=== PATIENT | male | born 1965 | race African-American/Black ===

== ENCOUNTER 2022-08-20 15:29 | Observation (INO) | payer OTHER ==
[2022-08-20] MEDS ORDERED: SODIUM CHLORIDE 1,000 ML IV SCH (16:30)
[2022-08-20] MEDS ORDERED: SODIUM CHLORIDE 0.9% 500 ML INFUS.BAG IV ONE (16:42)
[2022-08-20 17:02] LABS: BASO % 0.6 % (0-2.0); EOS % 1.4 % (0-4.5); HEMATOCRIT 34.1 % (35.4-49); HEMOGLOBIN 11.5 GM/dL (11.7-16.9); LYMPH % 15.2 % (8-40); MCH 28.2 pg (25.7-33.7); MCHC 33.6 g/dl (32.0-35.9); MEAN CELL VOLUME 83.9 fl (80-96); MEAN PLT VOLUME 9.5 fl (7.5-11.1); MONO % 8.4 % (3.8-10.2); NEUT % 74.4 % (42.8-82.8); PLATELET COUNT 305 10^3/uL (134-434); RBC 4.07 M/mm3 (4.00-5.60); RDW 15.1 % (11.9-15.9)
[2022-08-20] MEDS ORDERED: MECLIZINE HCL 25 MG TABLET (FP) PO ONE (17:14)
[2022-08-20] MEDS ORDERED: MECLIZINE HCL 25 MG TABLET (FP) ONE (17:23)
[2022-08-20 17:27] LABS: CALCIUM 9.3 mg/dL (8.5-10.1); INR 1.1 (0.83-1.09); PROTHROMBIN TIME (PATIENT) 12.7 SEC (9.7-13.0)
[2022-08-20 17:29] LABS: BLOOD UREA NITROGEN 12.5 mg/dL (7-18)
[2022-08-20 17:30] LABS: ACTIVATED PTT 31.6 SECONDS (25.2-36.5)
[2022-08-20 17:31] LABS: CREATININE 0.9 mg/dL (0.55-1.3)
[2022-08-20 17:33] LABS: TOT PROT 7.7 g/dl (6.4-8.2)
[2022-08-20 20:06] LABS: PH,URINE 5.5 (5.0-8.0); URINE APPEARANCE CLEAR; URINE BILIRUBIN NEGATIVE (NEGATIVE); URINE COLOR YELLOW; URINE GLUCOSE (UA) TRACE (NEGATIVE); URINE KETONE TRACE (NEGATIVE); URINE LEUK ESTERASE NEGATIVE (NEGATIVE); URINE NITRITE NEGATIVE (NEGATIVE); URINE PROTEIN NEGATIVE (NEGATIVE)
[2022-08-20] MEDS ORDERED: CEFTRIAXONE 1 GM in DEXTROSE 5%-WATER - 50 ML IVPB ONE (22:05)
[2022-08-20] MEDS ORDERED: AZITHROMYCIN IVPB 500 MG/250 ML BAG IVPB ONE (22:06)
[2022-08-20] MEDS: DEXTROSE 5%-0.45% SALINE 1,000 ML IV SCH (22:48)
[2022-08-20] MEDS: ATORVASTATIN CA 40 MG TABLET (FP) PO SCH (23:06)
[2022-08-21 00:25] VITALS: BMI 38.4
[2022-08-21] MEDS ORDERED: ACETAMINOPHEN 325 MG TABLET (FP) PO PRN (03:07)
[2022-08-21 08:37] LABS: BASO % 0.6 % (0-2.0); EOS % 2.4 % (0-4.5); HEMATOCRIT 29.5 % (35.4-49); HEMOGLOBIN 9.9 GM/dL (11.7-16.9); LYMPH % 21.4 % (8-40); MCH 28.5 pg (25.7-33.7); MCHC 33.5 g/dl (32.0-35.9); MEAN CELL VOLUME 85.3 fl (80-96); MEAN PLT VOLUME 9.7 fl (7.5-11.1); MONO % 9.8 % (3.8-10.2); NEUT % 65.8 % (42.8-82.8); PLATELET COUNT 251 10^3/uL (134-434); RBC 3.46 M/mm3 (4.00-5.60); WHITE BLOOD COUNT 8.2 K/mm3 (4.0-10.0)
[2022-08-21 09:41] LABS: POTASSIUM 4.2 mmol/L (3.5-5.1)
[2022-08-21 09:56] LABS: CALCIUM 8.7 mg/dL (8.5-10.1)
[2022-08-21 09:57] LABS: BLOOD UREA NITROGEN 8.7 mg/dL (7-18)
[2022-08-21 10:00] LABS: CREATININE 0.7 mg/dL (0.55-1.3)
[2022-08-21] MEDS: LISINOPRIL 10 MG TABLET PO SCH (11:01)
[2022-08-21] MEDS: ENOXAPARIN NA (PORCINE) 40 MG/0.4 ML DISP.SYRIN SQ SCH (14:02)
[2022-08-21] MEDS: AZITHROMYCIN IVPB 500 MG/250 ML BAG IVPB SCH (14:02)
[2022-08-21] MEDS: CEFTRIAXONE 1 GM in DEXTROSE 5%-WATER - 50 ML IVPB SCH (14:38)
[2022-08-21] MEDS: ATORVASTATIN CA 40 MG TABLET (FP) PO SCH (21:20)
[2022-08-21] MEDS: DEXTROSE 5%-0.45% SALINE 1,000 ML IV SCH (21:23)
[2022-08-22] MEDS ORDERED: metFORMIN HCL 500 MG TABLET (FP) PO SCH (07:00)
[2022-08-22 07:17] LABS: EOS % 3.3 % (0-4.5); HEMATOCRIT 32.1 % (35.4-49); HEMOGLOBIN 10.6 GM/dL (11.7-16.9); LYMPH % 25.7 % (8-40); MCH 28.1 pg (25.7-33.7); MCHC 32.9 g/dl (32.0-35.9); MEAN CELL VOLUME 85.6 fl (80-96); MONO % 8.1 % (3.8-10.2); NEUT % 61.9 % (42.8-82.8); PLATELET COUNT 264 10^3/uL (134-434); RBC 3.75 M/mm3 (4.00-5.60); RDW 15.1 % (11.9-15.9); WHITE BLOOD COUNT 6.7 K/mm3 (4.0-10.0)
[2022-08-22 07:37] LABS: POTASSIUM 4.2 mmol/L (3.5-5.1)
[2022-08-22 07:43] LABS: ALBUMIN 3.2 g/dl (3.4-5.0); BLOOD UREA NITROGEN 7.9 mg/dL (7-18)
[2022-08-22 07:46] LABS: BILIRUBIN,TOTAL 0.6 mg/dL (0.2-1); CREATININE 0.8 mg/dL (0.55-1.3)
[2022-08-22 07:48] LABS: TOT PROT 6.5 g/dl (6.4-8.2)
[2022-08-22] MEDS: AZITHROMYCIN IVPB 500 MG/250 ML BAG IVPB SCH (09:44)
[2022-08-22] MEDS: LISINOPRIL 10 MG TABLET PO SCH (09:45)
[2022-08-22] MEDS: CEFTRIAXONE 1 GM in DEXTROSE 5%-WATER - 50 ML IVPB SCH (09:45)
[2022-08-22] MEDS: ENOXAPARIN NA (PORCINE) 40 MG/0.4 ML DISP.SYRIN SQ SCH (09:45)
[2022-08-22 14:41] VITALS: BP 127/70; PULSE 71; RESP 20; TEMP 98.1
== END 2022-08-22 19:02 | disposition home or self-care (01) ==
LOC: JER 15:29 → JERBED 17:28 → J4W 22:19
PROVIDERS: ADMIT Internal Medicine; ATTEND Internal Medicine
PROC: 3E03329 Introduction of Other Anti-infective into Peripheral Vein, Percutaneous Approach (ICD-10-PCS; principal; 2022-08-20)
PROC: 3E0337Z Introduction of Electrolytic and Water Balance Substance into Peripheral Vein, Percutaneous Approach (ICD-10-PCS; 2022-08-20)
PROC: 3E023GC Introduction of Other Therapeutic Substance into Muscle, Percutaneous Approach (ICD-10-PCS; 2022-08-20)
PROC: 3E0337Z Introduction of Electrolytic and Water Balance Substance into Peripheral Vein, Percutaneous Approach (ICD-10-PCS; 2022-08-20)
DX: E11.9 Type 2 diabetes mellitus without complications (principal); R42 Dizziness and giddiness; J18.9 Pneumonia, unspecified organism; I10 Essential (primary) hypertension
CPT/HCPCS: 36415; 70450-TC; 70496-TC; 70498-TC; 70551-TC; 71045-TC-FY; 71275-TC; 80048; 80053; 80061; 81003; 82550; 82962; 83036; 84443; 84484; 85025; 85610; 85730; 86738; 86850; 86900; 86901; 87899; 93005; 93010; 96361; 96365; 96366; 96367; 96369; 96372; 99285-25; G0378; Q9967